=== PATIENT | female | born 1995 | race Two or more races ===

== ENCOUNTER 2024-07-12 00:40 | Inpatient (IN) | payer MEDICAID, SELFPAY ==
[2024-07-12] VITALS (160 sets, daily range): BP systolic 74–129; BP diastolic 42–85; PULSE 54–94; RESP 16–20; TEMP 36.6–37.1; O2SAT 92–100
--- NOTE | 2024-07-12 01:12 | XR_ITS ---
Examination: Complete OB ultrasound greater than 14 weeks Date and time of exam: July 12, 2024 0144 hrs. Indications: Pelvic contractions and vaginal discharge beginning 11:00 PM July 11, 2024 Findings: Viable intrauterine single fetus with single amniotic sac presentation cephalic Cardiac motion 1:30 BPM Placenta anterior grade 3 Umbilical cord insertion seen Amniotic fluid index 16 cm spine maternal right Cervix 2.2 cm Ovaries obscured by the fetus Composite estimated gestational age based on BPD, head circumference, abdominal circumference, femur length is 36 weeks 6 days Estimated weight 3109.8 g. Survey of intracranial anatomy, spinal anatomy, abdominal anatomy, four-chamber heart performed with no abnormalities identified. Impression: Viable intrauterine gestation cephalic presentation Estimated gestational age 36 weeks 6 days.
--- NOTE | 2024-07-12 02:43 | PD.LDHP ---
Documentation for date of: 07/12/24 OB Labor/Induct. HPI History of Present Illness History of present illness: dictated in [employer] [id number] Meds Home Medications and Allergies Home Medications ?Medication ?Instructions ?Recorded ?Confirmed ?Type vit no.95-ferrous 1 tab PO QDAY 07/12/24 07/12/24 History fumarate 28 mg-folic acid 800 mcg tablet () Allergies Allergy/AdvReac Type Severity Reaction Status Date / Time No Known Allergies Allergy Verified 07/12/24 00:46 OB Exam Physical Exam Vital signs: Pulse Resp BP 77 16 105/63 07/12/24 00:54 07/12/24 01:12 07/12/24 00:54
[2024-07-12] MEDS: Ampicillin Inj 2,000 MG in SODIUM CHLORIDE 0.9% (P) 100 ML 200 MG IV (02:50)
[2024-07-12] MEDS: RINGERS LACTATED 1000 ML 1,000 ML 100 ML IV (02:52)
--- NOTE | 2024-07-12 02:58 | PRELIM_ITS ---
Obstetric ultrasound. July 12, 2024 at 0144 hours Clinical history: Rupture of membranes, unable to determine placenta.Comparison: No prior study is available for comparison.Findings:There is a grav id uterus with a live fetus in cephalic presentation of mean gestational age 36 weeks and 6 days (by biometry). cardiac activity is present at a heart rate of 138 beats per minute. The place nta is anterior in location, maturity grade 3. There is no evidence of placenta previa or retroplacen annie hemorrhage. Amniotic fluid is adequate (MANAV = 16 cm). Estimated weight is 3109.8 grams+/- 4 60 grams. Estimated due date by ultrasound is 08/03/2024.The cervical length measures 2.2 cm. Both ov ranjan are not visualized due to large uterus.Impression:1. Gravid uterus with a single live fetus in cephalic presentation of mean gestational age 36 weeks 6 days.2. Shortened cervix, of concern for cer vical incompetence. Recommend follow-up. 3. Anterior placenta without evidence of abruption. Report E lectronically Signed By: Dhiraj Samuels 07/12/2024 2:57:28 AM [EST]
[2024-07-12 04:03] LABS: Basophils % (Auto) 0 % (0-2.5); Eosinophils % (Auto) 0 % (0-10); Hematocrit 36.5 % (36.0-46.0); Hemoglobin 12.4 g/dL (12.0-16.0); Immature Granulocytes % (Auto) 0 % (0-0); Immature Granulocytes Auto 0.01 Thou/mm3 (0.00-0.00); Lymphocytes # (Auto) 1.8 Thou/mm3 (1.0-4.8); Lymphocytes % (Auto) 27 % (10-50); Mean Corpuscular Hemoglobin 27.7 pg (25.0-35.0); Mean Corpuscular Volume 82 fL (80-100); Monocytes # (Auto) 0.6 Thou/mm3 (0.0-0.8); Monocytes % (Auto) 9 % (0-12); Neutrophils # (Auto) 4.3 Thou/mm3 (1.8-7.7); Neutrophils % (Auto) 64 % (37-80); Nucleated Red Blood Cell % 0 /100 WBC (0); Platelet Count 182 Thou/mm3 (140-440); RDW Standard Deviation 43.4 fL (36.4-46.3); Red Blood Count 4.48 Miln/mm3 (4.00-5.20); White Blood Count 6.8 Thou/mm3 (3.6-11.0)
[2024-07-12 05:00] LABS: Syphilis Nonreactive (Nonreactive)
--- NOTE | 2024-07-12 05:51 | ESHP_ITS ---
RE: RENATO LEMONS : 1995 DATE OF ADMISSION: 07/12/2024 HISTORY OF PRESENT ILLNESS: This is a 28-year-old 2, para 1-0-0-1 with due date of 07/17 with intrauterine at 39 weeks and 2 days who presents to labor and delivery complaining of contractions and leaking fluid. The patient has care at [facility]. ALLERGIES: NO KNOWN DRUG ALLERGIES. MEDICATIONS: multivitamin 1 p.o. daily. PAST MEDICAL HISTORY: Denies. SOCIAL HISTORY: Denies. FAMILY HISTORY: See record. OBSTETRIC HISTORY: PAST SURGICAL HISTORY: Denies. REVIEW OF SYSTEMS: She denies any chest pain, palpitations, cough, fever, shortness of breath or lower extremity pain. She denies any headache, change in vision or right upper quadrant pain. PHYSICAL EXAMINATION: VITAL SIGNS: Blood pressure is 110/58, heart rate 63, respirations 16, temperature is 98.0. HEENT: Oropharynx and sclerae are clear. LUNGS: Clear to auscultation bilaterally. HEART: Regular rate and rhythm. ABDOMEN: Gravid, term size consistent with an estimated weight 7.5 pounds. PELVIC: See RN notes. EXTREMITIES: Nontender. SKIN: No gross rashes or lesions. NEUROLOGIC: No focal deficits. ASSESSMENT AND PLAN: Intrauterine at 39 weeks and 2 days of labor. Anticipate spontaneous vaginal delivery. Informed consent was obtained. The patient was made aware of the risks, complications, alternatives, and benefits of the proposed procedure and she agrees. She aware of the risks and complications of operative vaginal delivery and delivery and agrees with these modes of delivery if indicated. DT: 02:43:06 TT: 05:50:00 Ref: [id number] - TID: [id number] MONTY
[2024-07-12] MEDS: Ampicillin Inj 1,000 MG in SODIUM CHLORIDE 0.9% (P) 50 ML 50 MG IV ×2 (07:01→12:12)
--- NOTE | 2024-07-12 08:46 | PD.LDPN ---
Documentation for date of: 07/12/24 OB Labor Progress Note Pain Control Comments: Epidural Pelvic Exam Dilation (cm): 6.5 Effacement (%): 90 station: 0 Amniotic membrane status: Ruptured Comments: per RN Contractions Contraction frequency: q 3 m Status status: Category l Assessment and Plan Comments: Augment with Pitocin Anticipate
[2024-07-12] MEDS: RINGERS LACTATED 1000 ML 1,000 ML 125 ML IV ×2 (09:36→09:39)
[2024-07-12] MEDS: OXYTOCIN in NS 30 units 30 UNIT/500 ML BAG IV (10:23)
[2024-07-12] MEDS: MINERAL OIL 30 ML UDC TOP (12:52)
[2024-07-12] MEDS: OXYTOCIN in NS 20 units 20 UNIT/1,000 ML BAG 125 UNIT IV (12:55)
[2024-07-12] MEDS: BENZO/LANO/ALOE (Dermoplast) 60 GM CAN 1 SPRAY TOP (13:08)
[2024-07-12] MEDS: IBUPROFEN TAB 400 MG TABLET 800 MG PO (13:13)
--- NOTE | 2024-07-12 13:19 | ESDS_ITS ---
DS: Providers Provider Date of admission: 07/12/24 01:12 Primary care physician: Physician No Primary/Family Admitting Provider: Amos Hodge MD Attending Provider on Admission: Amos Hodge MD Attending Provider on DC: Amos Hodge MD Discharging Provider: Amos Hodge MD DS: Diagnosis Discharge Diagnosis (1) (normal spontaneous vaginal delivery): Status: Acute (2) Vulvar edema: Status: Acute Problem List Completed Was Problem List Reviewed/Reconciled?: Yes Summary/Hosp Course Brief History: dictated in [facility] [place] [id number] Peripartum Data Delivery Method: Normal Vaginal Delivery Laceration Description: yes and see Delivery Summary [place] 1: Gender: Female Disposition of : home Time Spent with Patient Time attestation: Total time spent providing and/or coordinating discharge services: Exam Vital Signs Temp Pulse Resp BP Pulse Ox 97.8 F 57 L 18 108/59 L 99 07/12/24 07:02 07/12/24 13:14 07/12/24 07:02 07/12/24 13:14 07/12/24 13:09 Discharge Plan Plan Patient Disposition: HOME (Self Care) Prescriptions/Referrals Prescriptions/Med Rec: New ibuprofen 600 mg tablet 600 mg PO Q6H PRN (Reason: pain) Qty: 30 0RF No Action PNV cmb#95-ferrous fumarate-FA [] 28 mg iron- 800 mcg tablet 1 tab PO QDAY Patient Comments: TAKE 1 TABLET BY MOUTH DAILY Referrals: No Primary/Family,Physician [Primary Care Provider] - Patient/Caregiver Discharge Instructions Discharge Activity: activity as tolerated Other Discharge Activity Instructions:: Follow up [facility] in 4-6 weeks. Print Language: Bahraini Stand Alone Forms: [facility] Award Info., Patient Portal Info Letter Planned Discharge Date 07/13/24
--- NOTE | 2024-07-12 13:20 | PD.LDDELS ---
Data (Bird) Data : 2 Para: 1 Term: 1 : 0 : 0 Delivery Data (Bird) Labor Data ROM Date: 07/11/24 ROM Time: 23:30 Rupture Type: SROM Amniotic Fluid: Clear Delivery Data EDC: 07/17/24 EDC calculated by:: LMP/early US confirmation Labor Onset Stage 1 Date: 07/12/24 Labor Onset Stage 1 Time: 05:31 Labor Onset Stage 2 Date: 07/12/24 Labor Onset Stage 2 Time: 12:15 Delivery Date: 07/12/24 Delivery Time: 12:53 Gestational age (weeks): 39 Gestational age (days): 2 Placenta Delivery Date: 07/12/24 Placenta Delivery Time: 13:05 Delivered by: Amos Hodge Delivery nurse: Paige Sanders Other staff at delivery: Nurse Other staff at delivery: Nursery Nurse Other staff at delivery: 2nd Nurse Other staff at delivery: Shaista Garcia Other staff at delivery: Leonila Gonzalez Other staff at delivery: jabari duran Delivery Method Delivery: Vaginal Delivery Type: Spontaneous Presentation: Vertex Position: OA Anesthesia Type Primary Anesthesia: Epidural Placenta Placenta Delivery: Spontaneous Placenta Cultures Obtained: No Placenta Sent for Examination: No Cord Sample: Cord Blood Obtained Lacerations #1: Perineal: 2nd degree Perineal repair Sutures used for repair: 3.0 Chromic EBL Estimated blood loss (ml): 200 Additional Procedures None Complications Complications: None Data (Bird) [place] Data Infant Gender: Female Infant Weight Grams: 3610 1 Minute Total: 9 5 Minute Total: 9
[2024-07-12 21:03] LABS: Basophils % (Auto) 0 % (0-2.5); Eosinophils % (Auto) 0 % (0-10); Hematocrit 35.5 % (36.0-46.0); Hemoglobin 11.7 g/dL (12.0-16.0); Immature Granulocytes % (Auto) 0 % (0-0); Immature Granulocytes Auto 0.04 Thou/mm3 (0.00-0.00); Lymphocytes # (Auto) 1.9 Thou/mm3 (1.0-4.8); Lymphocytes % (Auto) 17 % (10-50); Mean Corpuscular Hemoglobin 27.3 pg (25.0-35.0); Mean Corpuscular Volume 83 fL (80-100); Monocytes # (Auto) 1.3 Thou/mm3 (0.0-0.8); Monocytes % (Auto) 12 % (0-12); Neutrophils # (Auto) 7.9 Thou/mm3 (1.8-7.7); Neutrophils % (Auto) 71 % (37-80); Nucleated Red Blood Cell % 0 /100 WBC (0); Platelet Count 161 Thou/mm3 (140-440); Red Blood Count 4.28 Miln/mm3 (4.00-5.20); White Blood Count 11.1 Thou/mm3 (3.6-11.0)
[2024-07-13] VITALS: BP 104/68; PULSE 69; RESP 18; TEMP 36.5; O2SAT 97
[2024-07-13] MEDS: IBUPROFEN TAB 400 MG TABLET 800 MG PO ×2 (00:50→08:44)
[2024-07-13 04:07] VITALS: BP 106/68; PULSE 70; RESP 20; TEMP 36.7; O2SAT 96
--- NOTE | 2024-07-13 07:32 | PD.LDPPPRG ---
Subjective Subjective Interval history: No complaints of pain. No dizziness. Bonding and breast-feeding Exam Vital Signs Temp Pulse Resp BP Pulse Ox O2 Del Method 98.1 F 70 20 106/68 96 Room Air 07/13/24 04:07 07/13/24 04:07 07/13/24 04:07 07/13/24 04:07 07/13/24 04:07 07/13/24 04:07 Narrative Exam Vital signs are stable afebrile. Breasts are soft. Fundus firm below the umbilicus. Perineum is well-approximated. Minimal swelling and ecchymosis. Soft. Small lochia. Negative Homans' sign. No phlebitis. 2+ DTRs. Objective Labs 07/12/24 20:40 Labs: Laboratory Results - last 24 hr 07/12/24 20:40 WBC 11.1 H D RBC 4.28 Hgb 11.7 L Hct 35.5 L MCV 83 MCH 27.3 MCHC 33.0 RDW Std Deviation 44.0 Plt Count 161 Neut % (Auto) 71 Lymph % (Auto) 17 [place] % (Auto) 12 Eos % (Auto) 0 Baso % (Auto) 0 Neut # (Auto) 7.9 H Lymph # (Auto) 1.9 [place] # (Auto) 1.3 H Eos # (Auto) 0.0 Baso # (Auto) 0.0 Immature Gran # (Auto) 0.04 H Absolute Nucleated RBC 0.00 Immature Gran % 0 Nucleated RBC % 0 Assessment & Plan Problem List (1) (normal spontaneous vaginal delivery): Status: Acute (2) Vulvar edema: Status: Acute Assessment Comment Assessment comment: 24 hr pp Plan Comment Plan Comment: Discharge home with baby. Continue vitamins and iron. Tylenol ibuprofen for pain. Danger signs. Return in 3 weeks visit. Discussed wound care and sitz bath's. Discussed ER precautions and parameters. Discussed signs symptoms of infection. Time Spent With Patient Time: Total time spent is greater than 50% in coordination of care (as documented) at patient's floor/unit and/or counseling patient:
--- NOTE | 2024-07-13 07:37 | ESDS_ITS ---
DS: Providers Provider Date of admission: 07/12/24 01:12 Primary care physician: Physician No Primary/Family Admitting Provider: Amos Hodge MD Attending Provider on Admission: Amos Hodge MD Consults: 07/12/24 13:33 Referral Routine Comment: Attending Provider on DC: Winsome France CNM Discharging Provider: Winsome France CNM DS: Diagnosis Problem List Completed Was Problem List Reviewed/Reconciled?: Yes Summary/Hosp Course Brief History: dictated in [facility] [id number] Peripartum Data Delivery Method: Normal Vaginal Delivery Episiotomy Description: None Laceration Description: yes Time Spent with Patient Time attestation: Total time spent providing and/or coordinating discharge services: Exam Vital Signs Temp Pulse Resp BP Pulse Ox O2 Del Method 98.1 F 70 20 106/68 96 Room Air 07/13/24 04:07 07/13/24 04:07 07/13/24 04:07 07/13/24 04:07 07/13/24 04:07 07/13/24 04:07 Discharge Plan Plan Patient Disposition: HOME (Self Care) Patient condition on transfer: Stable Prescriptions/Referrals Prescriptions/Med Rec: New ibuprofen 600 mg tablet 600 mg PO Q6H PRN (Reason: pain) Qty: 30 0RF Continued PNV cmb#95-ferrous fumarate-FA [] 28 mg iron- 800 mcg tablet 1 tab PO QDAY Patient Comments: TAKE 1 TABLET BY MOUTH DAILY Referrals: No Primary/Family,Physician [Primary Care Provider] - Patient/Caregiver Discharge Instructions Meds to Beds: Yes Discharge Activity: activity as tolerated and resume usual activities Other Discharge Activity Instructions:: Follow up [facility] in 4-6 weeks. Print Language: Bolivian Activity Restrictions/Additional Instructions: Discharge home with baby. Okay to board if needed. Continue vitamins and iron. Tylenol ibuprofen for pain. Discussed danger signs and symptoms and signs symptoms of infection. Discussed ER precautions parameters. Discussed wound care and sitz bath's. Return in 2 weeks visit Stand Alone Forms: [employer] Award Info., Patient Portal Info Letter Discharge Order Discharge Orders: Discharge (Routine); Ordered 07/13/24 Ordered By: Amos Hodge Planned Discharge Date 07/13/24
--- NOTE | 2024-07-13 07:44 | PD.LDPPPRG ---
Subjective Subjective Interval history: Delivery type: Patient doing well this morning. No acute complaints. Ambulating, tolerating p.o. and voiding without difficulty. HTN/Pre-Eclampsia screen: No chest pain, shortness of breath, headache, visual changes, epigastric or right upper quadrant pain. Breast-feeding, lochia diminishing. Bowel: Flatus+/ BM+ Exam Vital Signs Temp Pulse Resp BP Pulse Ox O2 Del Method 98.1 F 70 20 106/68 96 Room Air 07/13/24 04:07 07/13/24 04:07 07/13/24 04:07 07/13/24 04:07 07/13/24 04:07 07/13/24 04:07 Constitutional Constitutional: no acute distress Routine HEENT Exam Head: Present normocephalic and atraumatic Eye: Present EOMI and PERRL ENT: Present mucous membranes moist Routine Neck Exam Neck: Present supple and trachea midline Routine Respiratory Exam Respiratory: Present chest non-tender, lungs clear, normal breath sounds and no resp distress Routine Cardiovascular Exam Cardiovascular: Present RRR Routine Abdominal Exam Abdominal: Present soft and normoactive bowel sounds Routine Extremities Exam Extremities: Present full ROM Routine Skin Exam Skin: Present intact, dry and warm Routine Neurological Exam Neurological: Present alert, oriented X3 and CN II-XII intact Routine Psychiatric Exam Psychiatric: Present normal affect and normal thought process Objective Labs 07/12/24 20:40 Labs: Laboratory Results - last 24 hr 07/12/24 20:40 WBC 11.1 H D RBC 4.28 Hgb 11.7 L Hct 35.5 L MCV 83 MCH 27.3 MCHC 33.0 RDW Std Deviation 44.0 Plt Count 161 Neut % (Auto) 71 Lymph % (Auto) 17 [place] % (Auto) 12 Eos % (Auto) 0 Baso % (Auto) 0 Neut # (Auto) 7.9 H Lymph # (Auto) 1.9 [place] # (Auto) 1.3 H Eos # (Auto) 0.0 Baso # (Auto) 0.0 Immature Gran # (Auto) 0.04 H Absolute Nucleated RBC 0.00 Immature Gran % 0 Nucleated RBC % 0 Assessment & Plan Problem List (1) (normal spontaneous vaginal delivery): Status: Acute Assessment and plan: 1. Continue routine /post-op care 2. Labs reviewed, cbc appropriate 3. Remove dressing/Jacob 4. Encourage to ambulate, shower 5. Encourage PO intake, breast feeding (2) Vulvar edema: Status: Acute Time Spent With Patient Time: Total time spent is greater than 50% in coordination of care (as documented) at patient's floor/unit and/or counseling patient:
--- NOTE | 2024-07-13 07:45 | ESDS_ITS ---
DS: Providers Provider Date of admission: 07/12/24 01:12 Primary care physician: Physician No Primary/Family Admitting Provider: Amos Hodge MD Attending Provider on Admission: Wilder Randolph MD Consults: 07/12/24 13:33 Referral Routine Comment: Attending Provider on DC: Wilder Randolph MD Discharging Provider: Wilder Randolph MD DS: Diagnosis Discharge Diagnosis (1) (normal spontaneous vaginal delivery): Status: Acute (2) Vulvar edema: Status: Acute Problem List Completed Was Problem List Reviewed/Reconciled?: Yes Summary/Hosp Course Brief History: dictated in [facility] [id number] Peripartum Data Delivery Method: Normal Vaginal Delivery Episiotomy Description: None Time Spent with Patient Time attestation: Total time spent providing and/or coordinating discharge services: Exam Vital Signs Temp Pulse Resp BP Pulse Ox O2 Del Method 98.1 F 70 20 106/68 96 Room Air 07/13/24 04:07 07/13/24 04:07 07/13/24 04:07 07/13/24 04:07 07/13/24 04:07 07/13/24 04:07 Discharge Plan Plan Patient Disposition: HOME (Self Care) Patient condition on transfer: Stable Prescriptions/Referrals Prescriptions/Med Rec: New ibuprofen 600 mg tablet 600 mg PO Q6H PRN (Reason: pain) Qty: 30 0RF Continued PNV cmb#95-ferrous fumarate-FA [] 28 mg iron- 800 mcg tablet 1 tab PO QDAY Patient Comments: TAKE 1 TABLET BY MOUTH DAILY Referrals: No Primary/Family,Physician [Primary Care Provider] - Wilder Randolph MD [Physician] - Patient/Caregiver Discharge Instructions Meds to Beds: Yes Discharge Activity: activity as tolerated and resume usual activities Other Discharge Activity Instructions:: Follow up [facility] in 4-6 weeks. Print Language: Icelandic Activity Restrictions/Additional Instructions: Discharge home with baby. Okay to board if needed. Continue vitamins and iron. Tylenol ibuprofen for pain. Discussed danger signs and symptoms and signs symptoms of infection. Discussed ER precautions parameters. Discussed wound care and sitz bath's. Return in 2 weeks visit Stand Alone Forms: [employer] Award Info., Patient Portal Info Letter Discharge Order Discharge Orders: Discharge (Routine); Ordered 07/13/24 Ordered By: Amos Hodge Planned Discharge Date 07/13/24
[2024-07-13 08:00] VITALS: BP 107/67; PULSE 60; RESP 17; TEMP 36.8; O2SAT 97
--- NOTE | 2024-07-13 09:38 | ESPR_ITS ---
RE: RENATO LEMONS : 1995 DATE OF SERVICE: 07/13/2024 S: day#1, the patient denies any problem or complaints. She is voiding. She is ambulating. She tolerated a regular diet. She is passing flatus. She denies any excessive vaginal bleeding. She denies any dizziness or lightheadedness. She denies any chest pain, palpitations, shortness of breath or lower extremity pain. O: Vital Signs: Blood pressure 106/68, heart rate 70, respirations 20, temperature 98.1, and pulse oximetry 96% on room air. Lungs: Clear to auscultation bilaterally. Heart: Regular rate and rhythm. Abdomen: Fundus is firm. Extremities: Nontender. LABORATORY DATA: Hemoglobin pre-delivery is 12.4. Post delivery is 11.7. A: day #1, status post spontaneous vaginal delivery. P: Discharge home. Discharge instructions given. Follow up in the office in 6 weeks. DT: 07:37:02 TT: 09:36:00 Ref: [id number] - TID: [id number]
[2024-07-13 12:15] VITALS: BP 109/70; PULSE 72; RESP 18; TEMP 36.9; O2SAT 97
== END 2024-07-13 12:54 | disposition home or self-care (01) | DRG 560 ==
LOC: S4SX 13:16 → S4NX 17:18
PROVIDERS: Admitting Provider Specialist; Visit Provider Obstetrics & Gynecology
DX: O70.1 Second degree perineal laceration during delivery (principal); Z37.0 Single live birth; Z3A.39 39 weeks gestation of pregnancy
CPT/HCPCS: 36415; 59409; 76805; 84112; 85025; 86780; 86850; 86900; 86901; J0290; J2590; J2795; J3010; J7050; J7120; A9270

== ENCOUNTER 2025-05-17 10:06 | Outpatient (AMB) | payer MEDICAID, SELFPAY ==
[2025-05-17 10:32] VITALS: BP 106/68; PULSE 60; RESP 18; TEMP 36.6; O2SAT 98
--- NOTE | 2025-05-17 10:32 | AMB.OBINITIA ---
Vital Signs 05/17/25 10:32 Weight 89.018 kg Weight Measurement Method Standing Scale BP 106/68 Blood Pressure Source Automatic Cuff Blood Pressure Location Left Upper Arm Position Sitting Respiration 18 Pulse 60 Pulse Source Monitor Temp 97.8 F Temp Source Oral Pulse Oximetry (%) 98 Oxygen Delivery Method Room Air Allergies/Home Meds Allergies & Medications Allergies No Known Allergies Allergy (Verified 05/17/25 10:33) Medication Reconciliation ibuprofen 600 mg tablet 600 mg PO Q6H PRN pain #30 tabs 07/12/24 [Rx Confirmed 05/17/25] vit no.95-ferrous fumarate 28 mg-folic acid 800 mcg tablet () 1 tab PO QDAY 07/12/24 [History Confirmed 05/17/25] Intake Visit Data Collection New Patient or Established: Established Patient (seen at [facility] within 3 years) Reason for Visit:: OBI Seen by Clinical Staff ONLY (RN/MA): No Stitching Department Supervisor Required: No Do You Feel Safe at Home: Yes Authorities Contacted: N/A PCP or OBGYN visit in last 3 months: Yes Hx Now: Yes Are you currently on any form of Control: No Last menstrual period: 02/03/25 Pain Present Currently: No Pain Scale Used: Alvarez-Steen/Numerical Pain scale:: 0 Smoking Status Smoking Status: Never smoker Immunizations Flu Vaccine in the Last 12 Months: No Flu Vaccine Exclusion Criteria: No Exclusion Criteria Questionnaires Covid-19 Vaccine Questionnaire Has patient been vacinated for Covid-19 Have you been vacinated for Covid-19: Yes PHQ-9 PHQ-2 Over the last 2 weeks, how often have you been bothered by any of the following problems? 1. Little interest or pleasure in doing things: not at all 2. Feeling down, depressed, or hopeless: not at all Total score: 0 PHQ-9 3. Trouble falling or staying asleep, or sleeping too much: Not at all 4. Feeling tired or having little energy: Not at all 5. Poor appetite or overeating: Not at all 6. Feeling bad about yourself - or that you are a failure or have let yourself or your family down: Not at all 7. Trouble concentrating on things, such as reading the newspaper or watching television: Not at all 8. Moving or speaking so slowly that other people could have noticed? - Or the opposite - being so fidgety or restless that you have been moving around a lot more than usual: not at all 9. Thoughts that you would be better off or of hurting yourself in some way: Not at all Total score: 0 If you checked off any problems, how difficult have these problems made it for you to do your work, take care of things at home, or get along with other people?: not difficult at all Source: Developed by Drs. Luis Enriquez, Renita Handley, Anup Becker and colleagues, with an educational franco from [email or web address]. Depression screen completed yes Social History Living Situation History Housing: House Tobacco History Smoking Status: Never smoker Alcohol History Alcohol Intake: Never Domestic Abuse History Do You Feel Safe at Home: Yes History of Present Illness HPI Narrative 29-year-old 3 para 2 for OBI. Patient's last period February 03, 2025. She states she has had irregular cycles but she is sure of the date. That gives EDC November 10, 2025. Patient denies any leaking or bleeding, she does have cramps. Denies social habits. Denies any existing medical problems patient had a dermoid cyst removed on her ovary prior to her first . Happy about the . 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 History of irregular periods. Last menses February 03, 2025. This gives due date November 10, 2025. Patient has cramping but no bleeding. Schedule MFM appointment at [facility]. OB panel today with NIPT, carrier screens,. A1c also. Discussed SAB precautions. Continue prenatals. Return in 3 weeks for AFP Menstrual History Menstrual reliability: definite Flow: normal Menstrual regularity: regular Monthly: Yes Age at menarche: 12 On control pills at conception: No OB History : 3 Para: 2 # of Living Children: 2 Delivery History 1st : Child's name: NA date: 06/05/20 sex: male Delivery type: vaginal History of depression before or after : No 2nd : Child's name: NA date: 07/12/25 sex: female Delivery type: vaginal History of depression before or after : No Infection History & Risk Evaluation History of STDs: none HIV risk evaluation: low risk Hepatitis B risk evaluation: low risk Patient or partner has history of Genital Herpes: No Varicella/chicken pox status: immunized Genetic Screening & History Genetic Screening/Teratology Counseling - Includes patient, baby's father, or anyone in either family with: 1. Patient's age 35 years or older as of estimated date of delivery: No 2. Thalassemia (Portuguese, Serbian, Mediterranean, or Background); MCV less than 80: No 3. Neural Tube Defect (Meningomyelocele, Spina Bifida, or Anencephaly): No 4. Congenital Heart Defect: No 5. Down Syndrome: No 6. Yon-Sachs (Ashkenazi Catholic, Cajun, Uzbek [place]): No 7. Dorcas Disease (Ashkenazi Catholic): No 8. Familial Dysautonomia (Ashkenazi Catholic): No 9. Sickle Cell Disease or Trait (): No 10. Hemophilia or other blood disorders: No 11. Muscular Dystrophy: No 12. Cystic Fibrosis: No 13. [place]'s Chorea: No 14. Mental Retardation/Autism: No 15. Other inherited genetic or chromosomal disorder: No 16. Maternal Metabolic Disorder (EG,TYPE 1 Diabetes, PKU): No 17. Patient or baby's father had a child with defects not listed above: No 18. Recurrent loss or a stillbirth: No 19. Medications (including supplements, vitamins, herbs or otc drugs)/illicit/recreational drugs/alcohol since last menstrual period: No 20. Any other: No Infection History 1. Live with someone with TB or exposed to TB: No 2. Rash or viral illness since last menstrual period: No 3. Hepatitis B,C: No Other (see comments) Source: [employer] Review of Systems Review of Systems Systems Reviewed: All systems reviewed, normal except as documented Exam General Limitations: no limitations General Appearance: alert, in no apparent distress, comfortable, cooperative, healthy appearing, well developed and well groomed Head Head exam: atraumatic, normocephalic and normal inspection Neck Neck exam: Present normal inspection, full ROM and trachea midline Chest Chest inspection: Present normal inspection and symmetric chest wall rise Resp Respiratory exam: Present normal lung sounds bilaterally Card Cardiovascular exam: Present regular rate, normal rhythm and normal heart sounds Psych Psychiatric exam: Present normal affect and normal mood Office Procedures OBC Clinic LOC & Office Proc's Nursing/Assessment Patient Status: Established Patient OB Clinic Nursing Assessment: Medication Reconciliation, Update PMH in EMR and Vital Signs OB Clinic Coordination of Care: Consent,records obtained, informed consent, Education Simp Pt/Fam, Lab and Imaging orders, Results/Orders obtained and Staff clarify orders Special Needs: Heart tones Established Patient Charge Established Patient Point Assignment: 110 Established Patient Point Charge: EP Level 3 (80-115) Assessment & Plan Diagnosis / Problem List (1) Encounter for supervision of high risk in second trimester, antepartum: Status: Acute Plan Schedule anatomy scan with [facility]. Discussed SAB precautions. Return in 3 weeks AP. OB panel and NIPT and carrier screens with A!C today Additional Plan Follow Up: 3 Weeks (obc)
== END 2025-05-17 11:09 | disposition home or self-care (01) ==
LOC: HODSOBC 10:06
PROVIDERS: Supervising Provider Advanced Practice Midwife; Visit Provider Advanced Practice Midwife
DX: O09.92 Supervision of high risk pregnancy, unspecified, second trimester (principal); Z3A.14 14 weeks gestation of pregnancy
CPT/HCPCS: 99213; G0463

== ENCOUNTER 2025-06-11 14:24 | Outpatient (AMB) | payer MEDICAID, SELFPAY ==
[2025-06-11 14:33] VITALS: BP 104/66; PULSE 80; RESP 18; TEMP 36.2; O2SAT 98
--- NOTE | 2025-06-11 14:33 | OBCLNT_ITS ---
Vital Signs 06/11/25 14:33 Weight 90.322 kg Weight Measurement Method Standing Scale BP 104/66 Blood Pressure Source Automatic Cuff Blood Pressure Location Left Upper Arm Position Sitting Respiration 18 Pulse 80 Pulse Source Monitor Temp 97.2 F Temp Source Oral Pulse Oximetry (%) 98 Oxygen Delivery Method Room Air Allergies/Home Meds Allergies & Medications Allergies No Known Allergies Allergy (Verified 06/11/25 14:34) Medication Reconciliation ibuprofen 600 mg tablet 600 mg PO Q6H PRN pain #30 tabs 07/12/24 [Rx Confirmed 06/11/25] vit no.95-ferrous fumarate 28 mg-folic acid 800 mcg tablet () 1 tab PO QDAY 07/12/24 [History Confirmed 06/11/25] Immunizations Immunizations Flu Vaccine in the Last 12 Months: No Flu Vaccine Exclusion Criteria: No Exclusion Criteria Care OB Visit Log OB Flowsheet Initial Weight: Not Recorded Date -?-?-?-?-?-?-?-?-?-?-?-?- EGA Weight BP Alb Glu CTX Pres Fundal ht FHR Mov Dilation Station Effacement Hx Notes Visit Note 05/17/25 -?-?-?-?-?-?-?-?-?-?-?--?- 14w 5d 89.018 kg 106/68 absent unknown 13 145 absent 29-year-old for OBI. History of irregular periods. Last menses February 03, 2025. This gives due date November 10, 2025. Patient has cramping but no bleeding. Schedule MFM appointment at [facility]. OB panel today with NIPT, carrier screens,. A1c also. Discussed SAB precautions. Continue prenatals. 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 Denies leaking or bleeding or contractions marsha 07/20, AFP today discussed SAB and precautions. Return in 4 weeks OB check marsha 07/20, AFP today discuss ed SAB and precautions. Return in 4 weeks OB check. f/u mfm 07/20 DIEGO Calculator Estimated Delivery Date Method Current WG Current Estimate 11/10/25 LMP (Certain) 18w 2d Notes Visit Date: 06/11/25 Last Updated by: Winsome France CNM ob: NIPT/carrier screen-, O+,abs-, rpr;;nr, rub IMM, HBSAG-,HIV-, HC-GC/CT-, /39,225 Visit Date: 05/17/25 Last Updated by: Winsome France CNM 29 yo lmp 02/03/25. EDC: 11/10/25 Office Procedures OBC Clinic LOC & Office Proc's Nursing/Assessment Patient Status: Established Patient OB Clinic Nursing Assessment: Medication Reconciliation, Update PMH in EMR and Vital Signs OB Clinic Coordination of Care: Consent,records obtained, informed consent, Education Simp Pt/Fam, Lab and Imaging orders, Results/Orders obtained and Staff clarify orders Special Needs: Heart tones Established Patient Charge Established Patient Point Assignment: 110 Established Patient Point Charge: EP Level 3 (80-115) Assessment & Plan Diagnosis / Problem List (1) Encounter for supervision of high risk in second trimester, antepartum: Status: Acute Plan Follow-up [facility] July 20. Discussed labs and NIPT and carrier screen. Discussed labor precautions. aFP today return in 4 weeks OB check Additional Plan Follow Up: 4 Weeks (obc)
== END 2025-06-11 15:55 | disposition home or self-care (01) ==
LOC: HODSOBC 14:24
PROVIDERS: Supervising Provider Advanced Practice Midwife; Visit Provider Advanced Practice Midwife
DX: O09.92 Supervision of high risk pregnancy, unspecified, second trimester (principal); Z3A.18 18 weeks gestation of pregnancy
CPT/HCPCS: 99213; G0463

== ENCOUNTER 2025-07-07 14:10 | Outpatient (AMB) | payer MEDICAID, SELFPAY ==
--- NOTE | 2025-07-07 14:18 | AMB.OBPNC ---
Vital Signs 07/07/25 14:20 Height 1.55 m Height Method Stated Weight 90.265 kg Weight Measurement Method Standing Scale BMI 37.5 BP 99/64 Blood Pressure Source Automatic Cuff Blood Pressure Location Right Upper Arm Position Sitting Respiration 18 Pulse 69 Pulse Source Monitor Temp 97.3 F Temp Source Temporal Artery Scan Pulse Oximetry (%) 97 Oxygen Delivery Method Room Air Allergies/Home Meds Allergies & Medications Allergies No Known Allergies Allergy (Verified 07/07/25 14:20) Medication Reconciliation ibuprofen 600 mg tablet 600 mg PO Q6H PRN pain #30 tabs 07/12/24 [Rx Confirmed 07/07/25] vit no.95-ferrous fumarate 28 mg-folic acid 800 mcg tablet () 1 tab PO QDAY 07/12/24 [History Confirmed 07/07/25] Immunizations Immunizations Flu Vaccine in the Last 12 Months: No Flu Vaccine Exclusion Criteria: No Exclusion Criteria Care OB Visit Log OB Flowsheet Initial Weight: Not Recorded Date <del>?</del> EGA Weight BP Alb Glu CTX Pres Fundal ht FHR Mov Dilation Station Effacement Hx Notes Visit Note 05/17/25 <del>?</del> 14w 5d 89.018 kg 106/68 absent unknown 13 145 absent 29-year-old for OBI. History of irregular periods. Last menses February 03, 2025. This gives due date November 10, 2025. Patient has cramping but no bleeding. Schedule MFM appointment at [facility]. OB panel today with NIPT, carrier screens,. A1c also. Discussed SAB precautions. Continue prenatals. 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 Denies leaking or bleeding or contractions marsha 07/20, AFP today discussed SAB and precautions. Return in 4 weeks OB check marsha 07/20, AFP today discussed SAB and precautions. Return in 4 weeks OB check. f/u mfm 07/2007/07/25 <del>?</del> 22w 0d 90.265 kg 99/64 absent unknown 22 145 active Patient will begin disability after her unemployment. She is not working right now. This light movement. No complaints of cramping, bleeding, leaking. Third trimester labs. Discussed AFP. Patient has an ultrasound coming up July 20. And return in 4 weeks OB check DIEGO Calculator Estimated Delivery Date Method Current WG Current Estimate 11/10/25 LMP (Certain) 22w 0d Notes Visit Date: 07/07/25 Last Updated by: Winsome France CNM 06/25: AFP neg Visit Date: 06/11/25 Last Updated by: Winsome France CNM ob: NIPT/carrier screen-, O+,abs-, rpr;;nr, rub IMM, HBSAG-,HIV-, HC-GC/CT-, ,225 Visit Date: 05/17/25 Last Updated by: Winsome France CNM 29 yo lmp 02/03/25. EDC: 11/10/25 Office Procedures OBC Clinic LOC & Office Proc's Nursing/Assessment Patient Status: Established Patient OB Clinic Nursing Assessment: Medication Reconciliation, Update PMH in EMR and Vital Signs OB Clinic Coordination of Care: Complex Care and Chronic Disease 1-5, Education Complex Pt/Fam, Consent,records obtained, informed consent, Lab and Imaging orders, Results/Orders obtained and Staff clarify orders Special Needs: Heart tones Established Patient Charge Established Patient Point Assignment: 140 Established Patient Point Charge: EP Level 4 (120-155) Assessment & Plan Diagnosis / Problem List (1) Encounter for supervision of high risk in second trimester, antepartum: Status: Acute Plan M appointment July 20. Third trimester labs. Discussed labor precautions. Discussed AFP. Increase fluids and return in 4 weeks OB check Additional Plan Follow Up: 4 Weeks (obc)
[2025-07-07 14:20] VITALS: BP 99/64; PULSE 69; RESP 18; TEMP 36.3; O2SAT 97; BMI 37.5
== END 2025-07-07 14:47 | disposition home or self-care (01) ==
LOC: HODSOBC 14:10
PROVIDERS: Supervising Provider Advanced Practice Midwife; Visit Provider Advanced Practice Midwife
DX: O09.92 Supervision of high risk pregnancy, unspecified, second trimester (principal); Z3A.22 22 weeks gestation of pregnancy
CPT/HCPCS: 99214; G0463